=== PATIENT | female | born 1955 | race Caucasian/White ===

== ENCOUNTER 2018-04-01 05:48 | Day surgery (SDC) | payer BC ==
[2018-04-01] MEDS ORDERED: CEFAZOLIN 2 GM/50 ML (PMX) 50 ML IVPB (06:00)
[2018-04-01] MEDS ORDERED: LACTATED RINGER'S 1,000 ML IV* (06:00)
[2018-04-01] MEDS ORDERED: GLYCOPYRROLATE 0.4 MG INJ (07:00)
[2018-04-01] MEDS ORDERED: NEOSTIGMINE 3 MG/3 ML SYRINGE (07:00)
[2018-04-01 07:08] LABS: ADD MAN DIFF? NO
[2018-04-01 07:17] LABS: BASOPHILS % 0.4 % (0.0-2.0); EOSINOPHILS # 0.2 10^3/ul (0.0-0.5); EOSINOPHILS % 2.7 % (0.0-7.0); HEMATOCRIT 40.4 % (37.0-47.0); HEMOGLOBIN 13.7 g/dl (12.0-16.0); LYMPHOCYTES # 3.5 10^3/ul (0.8-2.9); LYMPHOCYTES % 40.9 % (15.0-51.0); MEAN CORPUSCULAR HEMOGLOBIN 31.6 pg (29.0-33.0); MEAN CORPUSCULAR HGB CONC 33.9 g/dl (32.0-37.0); MEAN CORPUSCULAR VOLUME 93.3 fl (82.0-101.0); MEAN PLATELET VOLUME 9.5 fl (7.4-10.4); MONOCYTE # 0.5 10^3/ul (0.3-0.9); MONOCYTES % 5.3 % (0.0-11.0); NEUTROPHIL # 4.3 10^3/ul (1.6-7.5); NEUTROPHILS % 50.5 % (39.0-77.0); PLATELET COUNT 306 10^3/UL (140-415); RED BLOOD COUNT 4.33 10^6/ul (4.20-5.40); RED CELL DISTRIBUTION WIDTH 12.6 % (11.5-14.5)
[2018-04-01 07:17] LABS: WHITE BLOOD COUNT 8.4 10^3/ul (4.8-10.8)
[2018-04-01 07:30] LABS: ANION GAP 8 (5-13); BLOOD UREA NITROGEN 18 mg/dl (7-20); CARBON DIOXIDE 28 mmol/L (21-31); CHLORIDE 105 mmol/L (97-110); CREATININE 0.75 mg/dl (0.44-1.00); Estimated GFR > 60 mL/min (>60); GLUCOSE 98 mg/dl (70-220); INR 0.94; POTASSIUM 4.8 mmol/L (3.5-5.1); PROTIME 12.7 Sec (11.9-14.9); SODIUM 141 mmol/L (135-144)
[2018-04-01 07:31] LABS: CALCIUM 9.6 mg/dl (8.4-10.2); PARTIAL THROMBOPLASTIN TIME 27.2 Sec (23.0-35.0)
[2018-04-01] MEDS ORDERED: MIDAZOLAM 1 MG/ML 2 ML INJ (07:56)
[2018-04-01] MEDS: POLYMYXIN/BACITRACIN 1L IRRIG IRR ×2 (08:16→09:12)
[2018-04-01] MEDS: BUPIVACAINE 0.5% (SDV) 30 ML INJ (09:12)
[2018-04-01] MEDS: LIDOCAINE 1%/EPI 30 ML INJ (09:12)
[2018-04-01] MEDS ORDERED: CEFAZOLIN 1 GM INJ (09:28)
[2018-04-01] MEDS ORDERED: ONDANSETRON 4 MG INJ (09:28)
[2018-04-01] MEDS ORDERED: ROCURONIUM 50 MG INJ (09:28)
[2018-04-01] MEDS ORDERED: LIDOCAINE 2% (SDV) 5 ML INJ (09:28)
[2018-04-01] MEDS ORDERED: PROPOFOL 20 ML (09:28)
[2018-04-01] MEDS: HYDROmorphONE 1 MG/5 ML IV SYRINGE IV ×3 (09:51→10:08)
[2018-04-01] MEDS: KETOROLAC 30 MG INJ IV (09:51)
[2018-04-01] MEDS: MEPERIDINE 25 MG INJ IV (09:55)
[2018-04-01] MEDS ORDERED: KETOROLAC 30 MG INJ IV (10:00)
[2018-04-01] MEDS ORDERED: HYDROCODONE/APAP (5/325) TAB PO ×2 (10:00)
[2018-04-01] MEDS ORDERED: hydrALAzine 20 MG INJ IV (10:00)
[2018-04-01] MEDS ORDERED: FENTAnyl 50 MCG/ML VIAL IV (10:00)
[2018-04-01] MEDS ORDERED: DIPHENHYDRAMINE 50 MG INJ IV (10:00)
[2018-04-01] MEDS ORDERED: ONDANSETRON 4 MG INJ IV (10:00)
[2018-04-01] MEDS ORDERED: LABETALOL HCL 20MG INJ IV (10:00)
== END 2018-04-01 11:28 | disposition home or self-care (01) ==
LOC: SDS 05:48
DX: K43.2 Incisional hernia without obstruction or gangrene (principal); Z85.038 Personal history of other malignant neoplasm of large intestine
CPT/HCPCS: 49560; 80048; 85025; 85610; 85730; 88302